=== PATIENT | female | born 1975 | race American Indian/Alaskan Native ===

== ENCOUNTER 2016-12-14 08:46 | Day surgery (SDC) | payer BC, OTHER ==
--- NOTE | 2016-12-12 17:16 | History and Physical Report ---
History of Present Illness Date of examination: 12/09/16 Chief complaint: Abnormal uterine bleeding and endometrial mass History of present illness: Past History : 0 SORT LINE History Operations: Breast Biopsy: and excision left , benign cyst Breast Reduction: (2001) Tonsillectomy endometrial polypectomy (2008) Carpal tunnel release right (2006) Abnormal PAP: positive Uterine Anomaly: positive endometrial mass Infection History HIV Risk Eval: no Hx of STD: None Active Medications (reviewed today): IBUPROFEN 800 MG TABS (IBUPROFEN) 1 po TID (PRN) OXYCODONE-ACETAMINOPHEN 5-325 MG TABS (OXYCODONE-ACETAMINOPHEN) 1-2po q6h ACYCLOVIR 400 MG TABS (ACYCLOVIR) 1 po bid MEDROXYPROGESTERONE ACETATE 10 MG TABS (MEDROXYPROGESTERONE ACETATE) 1 po [id number] qmonth as directed PLUS 27-1 MG TABS ( VIT-FE FUMARATE-FA) 1 po qd Current Allergies (reviewed today): PENICILLIN (Critical) IODINE (Critical) * SHELLFISH (Critical) Past Medical History: Reviewed history from 10/09/2015 and no changes required: PCOS failed IUI x2 Past Surgical History: Reviewed history from 12/02/2014 and no changes required: Breast Biopsy: and excision left , benign cyst Breast Reduction: (2001) Tonsillectomy endometrial polypectomy (2008) Carpnick tunnel release right (2006) Family History Summary: Reviewed history Last on 02/09/2016 and no changes required:12/12/2016 Other family member - Has No Family History of Colon Cancer - Entered On: 2014 Other family member - Has No Family History of Ovarvian Cancer - Entered On: Other family member - Has No Family History of DVT/PE on OCP - Entered On: 2014 Aunt - Has Family History Breast Cancer - maternal - Entered On: 02/09/2016 Other family member - Has No Family History of Biliary Tract Cancer - Entered On : 12/12/2016 Other family member - Has No Family History of Brain Cancer - Entered On: 2016 Other family member - Has No Family History of Kidney/Urinary Tract Cancer - Entered On: 12/12/2016 Other family member - Has No Family History of Pancreatic Cancer - Entered On: Other family member - Has No Family History of Stomach Cancer - Entered On: 12/12 Other family member - Has No Family History of Small Bowel Cancer - Entered On: 12/12/2016 Other family member - Has No Family History of Uterine Cancer - Entered On: 12/12 Social History: Reviewed history from 02/09/2016 and no changes required: Patient is Smoking History: Patient is a former smoker. Risk Factors: Smoked Tobacco Use: Former smoker Alcohol use: yes Drinks per day: social PAP Smear History: Date of Last PAP Smear: 02/09/2016 Previous Tobacco Use: Signed On 11/11/2016 Smoked Tobacco Use: Former smoker Smokeless Tobacco Use: Never Passive smoke exposure: no Drug use: no HIV high-risk behavior: no Previous Alcohol Use: Signed On 11/11/2016 Alcohol use: yes Type: occ Drinks per day: <1 Exercise: no Seatbelt use: 100 % Mammogram History: Date of Last Mammogram: 11/27/2014 PAP Smear History: Date of Last PAP Smear: 02/09/2016 Review of Systems General Denies fever, chills, sweats, anorexia, fatigue, weakness, malaise, weight loss and sleep disorder. Complains of abnormal vaginal bleeding. Denies vaginal discharge, incontinence, dysuria, hematuria, urinary frequency, amenorrhea, menorrhagia, pelvic pain, genital sores, decreased libido , painful periods, painful sex, urinary urgency, hot flashes, vaginal dryness, vaginal itching and vaginal odor. CV Denies chest pains, palpitations, syncope, dyspnea on exertion, orthopnea, PND and peripheral edema. Resp Denies cough, dyspnea at rest, excessive sputum, hemoptysis, wheezing and pleurisy. GI Denies nausea, vomiting, diarrhea, constipation, change in bowel habits, abdominal pain, melena, hematochezia, jaundice, gas/bloating, indigestion/ heartburn, dysphagia and odynophagia. Endo Denies cold intolerance, heat intolerance, polydipsia, polyphagia, polyuria and unusual weight change. Breast Denies left breast lump, right breast lump, nipple discharge, bloody discharge from nipple, breast pain, abnormal mammogram and breast enlargement. MS Denies back pain, joint pain, joint swelling, muscle cramps, muscle weakness, stiffness, arthritis, sciatica, restless legs, leg pain at night and leg pain with exertion. Derm Denies rash, itching, dryness and suspicious lesions. Neuro Denies paralysis, paresthesias, headache, seizures, tremors, vertigo, transient blindness, frequent falls, frequent headaches and difficulty walking. Psych Denies depression, anxiety, irritability and mood swings. Eyes Denies blurring, diplopia, irritation, discharge, vision loss, eye pain and photophobia. ENT Denies earache, ear discharge, tinnitus, decreased hearing, nasal congestion, nosebleeds, sore throat and hoarseness. Allergy Denies urticaria, allergic rash, hay fever and recurrent infections. Heme Denies abnormal bruising, bleeding and enlarged lymph nodes. Physical Exam Appearance: well developed, well nourished, no acute distress Other Exams Lungs: no rales, rhonchi, or wheezes Heart: S1, S2, no murmur, rub, or gallop Abdomen: soft, non-tender, no masses Appearance: obese Skin: no ulcers, xanthomas Lymph: no cervical, axillary, or inguinal adenopathy Extremities: normal alignment, no joint enlargement, crepitus, masses or tenderness; normal tone and strength Genitourinary Exam Vulva: normal, no lesions or discharge Urethral meatus: normal size and location, no lesions or discharge Urethra: no discharge Bladder: no cystocele Vagina: normal appearance, no discharge, lesions. No evidence of cystocele or rectocele. Cervix: normal appearance, no lesions, no discharge Uterus: unable to palpate Adnexa: unable to palpate due to obesity Impression & Recommendations: Problem # 1: Irregular menstruation (ICD-626.4) (NJM87-H64.5) She desires fertility and desires hysteroscopic excision of the endometrial mass with dilation and curettage. Consent reviewed and signed . Possible laparoscopy or laparotomy explained to patient. The risks and alternatives for this surgery were reviewed with the patient. She was informed of possible bleeding, infection, injury to bowel, bladder, ureters or other adjacent organs. She was informed this procedure may cause adhesions to occur that may prevent her from getting . The patient was instructed/informed the following: The normal length of hospital stay for this procedure. Nothing to eat or drink after midnight the evening prior to surgery. Clear liquids after lunch the day before surgery. Pre-op instruction sheets given. Wound care instructions given. Infection precautions reviewed, patient to call for any signs or symptoms of infection. The usual discomforts associated with this procedure were detailed. Proper use of pain medicines was reviewed. Patient was given ample opportunity to have all her questions answered before signing informed consent. Problem # 2: Endometrial mass (ICD-236.0) (OID05-Q95.0). Medications Added to Medication List This Visit: 1) Ibuprofen 800 Mg Tabs (Ibuprofen) .... 1 po tid (prn) 2) Oxycodone-acetaminophen 5-325 Mg Tabs (Oxycodone-acetaminophen) .... 1-2po q6h 3) Acyclovir 400 Mg Tabs (Acyclovir) .... 1 po bid Prescriptions: IBUPROFEN 800 MG TABS (IBUPROFEN) 1 po TID (PRN) #30 x 1 Entered and Authorized by: Apurva Pineda MD Method used: Print then Give to Patient RxID: [id number] OXYCODONE-ACETAMINOPHEN 5-325 MG TABS (OXYCODONE-ACETAMINOPHEN) 1-2po q6h #10 Tablet x 0 Entered and Authorized by: Apurva Pineda MD Method used: Print then Give to Patient RxID: [id number] Medications and Allergies Allergies Allergy/AdvReac Type Severity Reaction Status Date / Time Iodinated Contrast Media - Allergy Rash Verified 12/08/16 10:02 IV Dye Penicillins Allergy Rash Verified 12/08/16 10:01 shellfish derived Allergy Rash Verified 12/08/16 10:02 Home Medications Medication Instructions Recorded Confirmed Last Taken Type Acyclovir [Zovirax Tab] 400 mg PO Q8H 12/08/16 12/08/16 Unknown History Ergocalciferol(Vitamin D2)(Nf) 400 unit PO DAILY 12/08/16 12/08/16 Unknown History [Vitamin D (Nf)] Ibuprofen [Motrin] 800 mg PO Q8HR PRN 12/08/16 12/08/16 12/07/16 17:00 History Pnv95/Ferrous Fumarate/FA 1 each PO DAILY 07/19/17 07/19/17 Unknown History [ Caplet] Active Meds: Active Medications Gentamicin Sulfate (Garamycin) 160 mg 1.5 mg/kg (160 mg) IV PREOP FNEG PRN Reason: Protocol Clindamycin HCl (Cleocin 600 Mg/50 Ml) 600 mg in 50 mls @ 100 mls/hr IV PREOP NR PRN Reason: Protocol Assessment and Plan - Patient Problems (1) Abnormal uterine bleeding (AUB) Status: Acute (2) Endometrial mass Status: Acute
[~2016-12-14 08:46] MED LIST: CLEOCIN 600 MG/50 mL 600 MG/50 ML BAG IV NR; GARAMYCIN IV SCH; GARAMYCIN/NS 120MG/100ML 120 MG/100 ML BAG IV NR
[2016-12-14] MEDS ORDERED: DILAUDID ONE (11:21)
[2016-12-14] MEDS ORDERED: DIPRIVAN 10 MG/ML IV ONE (11:22)
[2016-12-14] MEDS ORDERED: XYLOCAINE MPF 2% ONE (11:23)
--- NOTE | 2016-12-14 11:47 | Anesthesia Consultation ---
Anesthesia Consult and Med Hx Date of service: 12/14/16 - Airway Anesthetic Teeth Evaluation: Good ROM Head & Neck: Adequate Mental/Hyoid Distance: Adequate Mallampati Class: Class II Intubation Access Assessment: Good - Pulmonary Exam CTA: Yes - Cardiac Exam Cardiac Exam: No Murmur - Pre-Operative Health Status ASA Pre-Surgery Classification: ASA1 Proposed Anesthetic Plan: General - Pulmonary Hx Smoking: No Hx Sleep Apnea: (LOW RISK) - Central Nervous System Hx Back Pain: Yes (HERNIATED DISC) Hx Psychiatric Problems: No - Hematic Hx Sickle Cell Disease: (SICKLE CELL TRAIT) - Other Systems Hx Alcohol Use: Yes (SOCIALLY) Hx Substance Use: No Hx Cancer: No
[2016-12-14 11:59] LABS: Basophils % (Auto) 0.6 % (0.0-1.8); Eosinophils % (Auto) 1.8 % (0.0-4.3); Hematocrit 34.9 % (30.3-42.9); Hemoglobin 11.9 gm/dl (10.1-14.3); Mean Corpuscular HGB Conc 34 % (30-34); Mean Corpuscular Hemoglobin 27 pg (28-32); Mean Corpuscular Volume 79 fl (79-97); Platelet Count 347 K/mm3 (140-440); Red Cell Distribution Width 14.6 % (13.2-15.2)
[2016-12-14] MEDS ORDERED: LACTATED RINGERS 1,000 ML IV SCH (12:00)
[2016-12-14] MEDS ORDERED: PEPCID PO NR (12:00)
[2016-12-14] MEDS ORDERED: VERSED IV NR (12:00)
--- NOTE | 2016-12-14 13:22 | Anesthesia Day of Surgery ---
Anesthesia Day of Surgery - Day of Surgery Patient Examined: Yes Patient H&P Reviewed: Yes Patient is NPO: Yes
[2016-12-14] MEDS ORDERED: DECADRON ONE (13:45)
[2016-12-14] MEDS ORDERED: ZOFRAN ONE (13:46)
[2016-12-14] MEDS ORDERED: NEO SYNEPHRINE/NS Syringe(OR USE) IV ONE (14:00)
[2016-12-14] MEDS ORDERED: TORADOL ONE (14:01)
[2016-12-14] MEDS ORDERED: LACTATED RINGERS 1,000 ML ONE (14:15)
[2016-12-14] MEDS ORDERED: NACL 0.9% IR ONE ×2 (14:30)
--- NOTE | 2016-12-14 14:38 | Discharge Summary ---
Providers - Providers Date of discharge: 12/14/16 Attending physician: JULISA MURRAY Primary care physician: HUMAN RESOURCE ASSISTANT Hospitalization Condition: Good Procedures: Hysteroscopic myomectomy, polypectomy, dilation and curettage Disposition: -01 TO HOME OR SELFCARE - Discharge Diagnoses (1) Abnormal uterine bleeding (AUB) Status: Resolved (2) Endometrial mass Status: Resolved Core Measure Documentation - Palliative Care Palliative Care/ Comfort Measures: Not Applicable - Core Measures Any of the following diagnoses?: none Exam - Constitutional General appearance: Present: no acute distress - Respiratory Respiratory effort: normal - Cardiovascular Rhythm: regular - Abdominal Female genitourinary: Present: deferred Plan Activity: other (no sex) Weight Bearing Status: Weight Bear as Tolerated Diet: regular Follow up with: JULISA MURRAY MD [Staff Physician] - (as scheduled)
[2016-12-14] MEDS ORDERED: ZOFRAN IV PRN (14:50)
[2016-12-14] MEDS: DILAUDID IV PRN ×2 (14:53→15:05)
--- NOTE | 2016-12-14 15:30 | Operative Report ---
Operative Report Operative Report: Date of procedure: 12/14/2016 Pre-operative diagnosis: 1. Abnormal uterine bleeding 2. Multiple endometrial masses 3. BMI 41 Post-operative diagnosis: 1. Abnormal uterine bleeding 2. Multiple endometrial masses 3. BMI 41 Procedure name(s): 1. Cervical dilation 2. Uterine curettage 3. Hysteroscopic myomectomy and polypectomy Surgeon: Apurva Pineda MD Technology Services Manager: [] Anesthesia: General anesthesia Findings: Patient had a small anterior submucosal fibroid. She was also noted to have a right lower lateral endometrial polyp, a right upper lateral endometrial polyp, and a left upper lateral polyp. Anesthesiologist: Dr. Bravo Complications: None EBL: Minimal Distension fliud: Normal saline Fluid deficit: 150 mL Procedure: After risks, benefits, complications, consequences and alternatives for this procedure were discussed with the patient, and she voiced her understanding and desires to proceed she was taken to the OR where general anesthesia was induced. She was placed in the dorsal lithotomy position. Exam under anesthesia was unremarkable area. She was then prepped and draped in the usual sterile fashion. Timeout was performed. A Saha catheter was introduced into the bladder. A bivalve speculum was introduced into the vagina. The anterior lip of the cervix was grasped with a single-tooth tenaculum, and the uterus was sounded to approximately 9 cm. The cervix was then progressively dilated to allow the diagnostic hysteroscope. The above findings were noted. The operative scope from [facility] was then set up. Using the Myosure device myomectomy polypectomy performed. Curettage was performed. Tissue was sent to pathology as a permanent. No obvious evidence of perforation was noted. The hysteroscope was reintroduced into the uterine cavity. Once the uterine cavity appeared to be clean the internal tubal ostia were visualized, the procedure was ended. All instruments were removed. No bleeding was noted from the tenaculum site. The patient tolerated the procedure well to recovery in stable condition. Counts were correct x3.
[2016-12-14 16:33] VITALS: BP 104/65
== END 2016-12-14 08:47 | disposition home or self-care (01) ==
LOC: OR 08:46
PROVIDERS: ATTEND Obstetrics & Gynecology
DX: N84.0 Polyp of corpus uteri (principal); D25.0 Submucous leiomyoma of uterus; D57.3 Sickle-cell trait; Z98.890 Other specified postprocedural states; Z91.041 Radiographic dye allergy status; Z88.0 Allergy status to penicillin; Z91.013 Allergy to seafood; Z87.891 Personal history of nicotine dependence; Z87.39 Personal history of other diseases of the musculoskeletal system and connective tissue; Z72.89 Other problems related to lifestyle; Z79.899 Other long term (current) drug therapy; Z83.3 Family history of diabetes mellitus
CPT/HCPCS: 36415; 58561; 81025; 85025; 88305; A4217; C1782; J1100; J1170; J1580; J1885; J2250; J2370; J2405; J2704; J7120